=== PATIENT | male | born 2000 | race Two or more races ===

== ENCOUNTER 2023-02-23 17:05 | Emergency (ER) | payer SELFPAY ==
[~2023-02-23] VITALS: Ht 170.2 cm; Wt 72.7 kg
[2023-02-23 17:11] VITALS: BP 119/68; PULSE 77; RESP 16; TEMP 98.4
== END 2023-02-23 18:42 | disposition left against medical advice (07) ==
LOC: EMS 17:07
DX: R21 Rash and other nonspecific skin eruption (principal); Z53.21 Procedure and treatment not carried out due to patient leaving prior to being seen by health care provider
CPT/HCPCS: 99281; Z7502